=== PATIENT | male | born 1960 | race African-American/Black ===

== ENCOUNTER 2017-01-20 09:04 | Emergency (ER) | payer OTHER ==
[~2017-01-20] VITALS: Ht 188 cm; Wt 104.3 kg
[2017-01-20 09:40] LABS: BARBITURATES NEG (NEG); BENZODIAZEPINES NEG (NEG); CANNABINOIDS NEG (NEG); COCAINE NEG (NEG); METHADONE NEG (NEG); OPIATES NEG (NEG); PHENCYCLIDINE NEG (NEG)
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
[2017-01-20 09:49] LABS: BILIRUBIN,URINE SMALL (NEG); GLUCOSE,URINE NEGATIVE (NEG); NITRITE,URINE NEGATIVE (NEG); PH,URINE 5.5; PROTEIN,URINE NEGATIVE (NEG-TRACE)
[2017-01-20 09:55] LABS: BASO % 1 % (0-3); EOS % 1 % (0-3); HEMATOCRIT 41.6 % (39.0-53.0); HEMOGLOBIN 14.5 g/dL (13.0-17.5); LYMPH # 0.9 x10^3/uL (1.0-4.8); LYMPH % 19 % (24-48); MEAN CORPUSCULAR HEMOGLOBIN 32 pg (25-35); MEAN CORPUSCULAR HGB CONC 35 g/dL (31-37); MEAN CORPUSCULAR VOLUME 91 fL (79-100); MONO % 14 % (0-9); NEUT % 66 % (31-73); PLATELET COUNT 194 x10^3/uL (140-400); RED BLOOD COUNT 4.58 x10^6/uL (4.30-5.70); RED CELL DISTRIBUTION WIDTH 15.6 % (11.5-14.5); WHITE BLOOD COUNT 4.6 x10^3/uL (4.0-11.0)
[2017-01-20] MEDS ORDERED: FAMOTIDINE 20 MG/2 ML VIAL IVP ONE (10:00)
[2017-01-20] MEDS ORDERED: ONDANSETRON PF 4 MG/2 ML VIAL. IV ONE (10:00)
[2017-01-20] MEDS ORDERED: MORPHINE SULFATE 10 MG/ML VIAL. IV ONE (10:00)
[2017-01-20 10:02] LABS: CALCIUM 8.8 mg/dL (8.5-10.1); CREATININE 0.9 mg/dL (0.7-1.3); GFR 104.9; POTASSIUM 3.5 mmol/L (3.5-5.1)
[2017-01-20 10:05] LABS: PROTHROMBIN TIME PATIENT 12.5 SEC (11.7-14.0)
[2017-01-20 10:08] LABS: ALBUMIN 3.6 g/dL (3.4-5.0); ALBUMIN/GLOBULIN RATIO 0.9 (1.0-1.7); TOTAL BILIRUBIN 0.5 mg/dL (0.2-1.0); TOTAL PROTEIN 7.7 g/dL (6.4-8.2)
[2017-01-20 10:08] LABS: BACTERIA,URINE 0 /HPF (0-FEW); RBC,URINE 0 /HPF (0-2); SQUAMOUS EPITHELIAL CELL,UR MOD /LPF
[2017-01-20 10:09] LABS: TRICHOMONAS,URINE PRESENT
[2017-01-20] MEDS ORDERED: CONTRAST GIVEN MC PRN (10:15)
[2017-01-20] MEDS ORDERED: IOHEXOL 300 MG/ML 75 ML VIAL IV ONE ×2 (10:15)
[2017-01-20] MEDS ORDERED: metroNIDAZOLE 500 MG TABLET PO ONE (10:30)
[2017-01-20] MEDS ORDERED: AZITHROMYCIN 250 MG TABLET. PO ONE (10:30)
[2017-01-20] MEDS ORDERED: cloNIDine HCL 0.1 MG TABLET PO ONE (10:45)
--- NOTE | 2017-01-20 10:55 | RAD ---
CT of the abdomen and pelvis with contrast, 01/20/2017: History: Abdominal pain Multidetector CT imaging was performed following an IV bolus injection of iodinated contrast material. There is a small pleural-based fatty density in the right lung base posterolaterally most compatible with a lipoma. There is mild adjacent parenchymal scarring or atelectasis. There is a 5 cm subcutaneous mass in the lower chest at the midline. It has increased slightly in size since 11/17/2010. It demonstrates an internal CT number of 34 Hounsfield units. This appearance is most commonly due to a skin related process such as a sebaceous cyst No hepatic abnormality is detected. The gallbladder is unremarkable. No pancreatic abnormality is detected. The spleen is of normal size. The kidneys show no evidence of obstruction or mass. There is a tiny left renal radiopacity compatible with a nonobstructing calculus. A vascular calcification is less likely. There is mild calcific plaquing of the abdominal aorta and its branches without evidence of aneurysm. No abdominal or pelvic adenopathy is seen. Scattered colonic diverticula are present, most numerous in the sigmoid region. No paracolonic inflammatory process is seen. A portion of the appendix is visualized and it is unremarkable. The bowel loops are not dilated. No free fluid or free air is evident in the abdomen or pelvis. There is dilatation of the right inguinal ring. It contains spermatic cord structures and fat. No bowel herniation is evident. IMPRESSION: 1. Colonic diverticulosis. 2. Tiny nonobstructing left intrarenal calculus. 3. Small right inguinal hernia. 3. Enlarging subcutaneous midline lower chest wall mass as described above. 4. No acute abdominal or pelvic abnormality is detected. PQRS Compliance Statement: One or more of the following individualized dose reduction techniques were utilized for this examination: 1. Automated exposure control 2. Adjustment of the mA and/or kV according to patient size 3. Use of iterative reconstruction technique
--- NOTE | 2017-01-20 10:58 | EKG ---
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
--- NOTE | 2017-01-20 11:05 | RAD ---
Portable chest, 01/20/2017: History: Abdominal pain, hypertension, possible pneumonia Comparison is made to a study from 11/17/2010. The heart size and pulmonary vascularity are normal. There is unchanged blunting of the right lateral costophrenic angle compatible with scarring. No pulmonary infiltrates are seen. There is no evidence of pleural fluid. IMPRESSION: No acute cardiopulmonary abnormality is detected.
[2017-01-20] MEDS ORDERED: CIPR500T94 PO (11:48)
[2017-01-20 12:01] VITALS: BP 174/88
== END 2017-01-20 12:02 | disposition home or self-care (01) ==
LOC: ER 09:04
DX: N20.0 Calculus of kidney (principal); F17.200 Nicotine dependence, unspecified, uncomplicated; A59.09 Other urogenital trichomoniasis; I10 Essential (primary) hypertension; F10.20 Alcohol dependence, uncomplicated; L72.3 Sebaceous cyst; R74.8 Abnormal levels of other serum enzymes; N30.00 Acute cystitis without hematuria; K40.90 Unilateral inguinal hernia, without obstruction or gangrene, not specified as recurrent; K57.30 Diverticulosis of large intestine without perforation or abscess without bleeding; D72.829 Elevated white blood cell count, unspecified; Z88.8 Allergy status to other drugs, medicaments and biological substances; Y90.0 Blood alcohol level of less than 20 mg/100 ml
CPT/HCPCS: 36415; 71010; 74177; 80053; 80307; 81001; 82553; 83690; 84484; 85027; 85610; 85730; 93005; 96365; 99285; G0480; J0690; Q0144; G0479

== ENCOUNTER → 2018-06-08 | Outpatient (CLI) | payer OTHER ==
[2018-06-05 10:51] VITALS: BP 165/84
[~2018-06-08] MED LIST: AMLO5TAB7 PO; CEPH-263 PO; CIPR500T94 PO; DOCU-109 PO; FAMO20TA5 PO; FENT1PAT90 TD; GADOBUTROL 7.5 MMOL/7.5 ML VIAL IV ONE; HYDR4TAB45 PO
--- NOTE | 2018-06-08 09:59 | RAD ---
MRI Brain with and without contrast History: Abdominal cancer, right weakness Technique: Multiplanar, multi sequential pre and postcontrast MR imaging was performed of the brain. Comparison: None Findings: There is a small 0.4 cm focus of restricted diffusion of the left frontal cortical surface, corresponding faint T2 and FLAIR hyperintense signal. There is no abnormal intracranial enhancement. There is no intra-axial mass effect or midline shift or extra-axial fluid collection. There is mild generalized supratentorial atrophy, ventricular size proportionate to the sulcal spaces. There is mild T2 and FLAIR hyperintense abnormality of the supratentorial white matter bilaterally greater of the left parietal lobe. There is preservation of the major arterial intracranial flow voids at the skull base. There is near complete opacification of the left maxillary sinus with circumferential mucosal thickening and apparently air-fluid level. There is slightly disconjugate gaze. Mastoid air cells are aerated. There is focus of signal abnormality of the C3 vertebral body hypointense on T1 sequence, also some heterogeneous signal of the dens otherwise difficult characterize. Impression: 1. There is a small recent acute or early subacute infarct of the left frontal cortical surface. Other minimal T2 and FLAIR hyperintense signal abnormality of the supratentorial parenchyma is probably due to chronic microvascular ischemic disease. There is no abnormal intracranial enhancement. 2. There is near complete opacification of the left maxillary sinus with air-fluid level with circumferential mucosal thickening, may be seen with acute sinusitis. 3. There is probably sclerotic lesion of C3 vertebral body, also some heterogeneous signal of the dens otherwise difficult to accurately characterize. FOR INTERNAL CODING PURPOSES Critical result: Findings discussed with CONNOR SALAS at 06/08/2018 9:55 AM. RESULT CODE: (C) Electronically signed by: Victor Hugo Fontana MD (06/08/2018 9:55 AM) [id number]
== END | disposition home or self-care (01) ==
LOC: MRI 11:59
PROVIDERS: ATTEND Family Medicine
DX: R29.898 Other symptoms and signs involving the musculoskeletal system (principal); G31.89 Other specified degenerative diseases of nervous system; Z85.038 Personal history of other malignant neoplasm of large intestine
CPT/HCPCS: 70553; A9585